=== PATIENT | male | born 2000 | race African-American/Black ===

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

== ENCOUNTER 2020-02-22 17:20 | Emergency (ER) | payer OTHER ==
[~2020-02-22] VITALS: Ht 177.8 cm; Wt 68.0 kg
[2020-02-22 17:51] LABS: URINE BILIRUBIN NEGATIVE (Negative); URINE BLOOD NEGATIVE (Negative); URINE CLARITY CLEAR; URINE COLOR YELLOW; URINE GLUCOSE-RANDOM* NEGATIVE (Negative); URINE KETONES NEGATIVE (Negative); URINE LEUKOCYTES-REFLEX NEGATIVE (Negative); URINE NITRITE-REFLEX NEGATIVE (Negative); URINE PROTEIN (DIPSTICK) NEGATIVE (Negative); URINE SPECIFIC GRAVITY 1.025 (1.005-1.035)
[2020-02-22 17:59] LABS: AMP/METHAMP Negative (Negative); BARBITURATES Negative (Negative); BENZODIAZEPINES Negative (Negative); COCAINE Negative (Negative); METHADONE Negative (Negative); OPIATES Negative (Negative); PCP Negative (Negative)
[2020-02-22 18:37] VITALS: BP 121/80
== END 2020-02-22 18:38 | disposition home or self-care (01) ==
LOC: ER 17:20
PROVIDERS: Physician Assistant
DX: R11.2 Nausea with vomiting, unspecified (principal); R55 Syncope and collapse; R82.998 Other abnormal findings in urine; Z90.89 Acquired absence of other organs

== ENCOUNTER 2021-03-22 15:20 | Emergency (ER) | payer OTHER ==
[~2021-03-22] VITALS: Ht 180.3 cm; Wt 79.4 kg
[2021-03-22 15:25] VITALS: BP 122/72
== END 2021-03-22 16:55 | disposition left against medical advice (07) ==
LOC: ER 15:20
DX: G89.29 Other chronic pain (principal); M54.6 Pain in thoracic spine; Z90.89 Acquired absence of other organs; W18.30XA Fall on same level, unspecified, initial encounter; Y93.89 Activity, other specified; Y92.89 Other specified places as the place of occurrence of the external cause; Y99.8 Other external cause status